=== PATIENT | female | born 1935 | race Caucasian/White ===

== ENCOUNTER → 2023-11-18 09:57 | Outpatient (REF) | payer OTHER, SELFPAY ==
[2023-11-18 11:14] LABS: % Basophils 0.8 % (0-2); % Immature Granulocytes 0.3 % (0-0.5); % Lymphocytes 20.6 % (20.5-51.1); % Monocytes 8.3 % (1.7-9.3); Absolute Basophils 0.1 10^3/uL (0-0.2); Absolute Eosinophils 0.1 10^3/uL (0-0.7); Absolute Lymphocytes 1.2 10^3/uL (1.2-3.4); Absolute Monocytes 0.5 10^3/uL (0.1-0.6); Absolute Neutrophils 4.2 10^3/uL (1.4-6.5); Hematocrit 37.4 % (37.0-47.0); Hemoglobin 12.1 g/dL (12.0-16.0); Mean Corp Hgb Conc. 32.4 g/dL (33.0-37.0); Mean Corpuscular Hgb 29.4 pg (27.0-31.0); Mean Platelet Volume 11.3 fL (7.4-10.4); Nucleated Red Blood Cells % 0 %; Platelet Count 200 10^3/uL (130-400); Red Blood Cell Count 4.11 10^6/uL (4.20-5.40); Red Cell Dist. Width 13.5 % (11.5-14.5)
[2023-11-18 11:49] LABS: Free T4 1.15 ng/dl (0.78-2.19); Vitamin D, 25-OH*** 25.6 ng/mL (30-80)
[2023-11-18 12:02] LABS: TSH 8.24 uIU/ml (0.47-4.68)
[2023-11-18 12:11] LABS: ALT (SGPT) 17 U/L (0-35); AST (SGOT) 32 U/L (14-36); Albumin 3.5 g/dl (3.5-5.0); Alkaline Phosphatase 52 U/L (38-126); Blood Urea Nitrogen 15 mg/dl (7-17); Calcium 9.1 mg/dl (8.4-10.2); Carbon Dioxide 24 mmol/L (22-30); Chloride 102 mmol/L (98-107); Glucose 83 mg/dl (70-99); HDL Cholesterol 96 mg/dl; Magnesium 2.1 mg/dl (1.6-2.3); Potassium 4.3 mmol/L (3.5-5.1); Sodium 133 mmol/L (135-145); Total Bilirubin 0.4 mg/dl (0.2-1.3); Total Protein 6.5 g/dl (6.3-8.2); Triglyceride 50 mg/dl (10-149); Very Low Density Lipoprotein 10 mg/dl (0-30); eGFR > 60.00
[2023-11-18 12:22] LABS: Vitamin B12 795 pg/ml (239-931)
[2023-11-18 12:23] LABS: Glycohemoglobin (HgbA1c) 5.8 % (4.0-5.6)
[2023-11-18 13:11] LABS: LDL Cholesterol, Calculated 89 mg/dl; Total Cholesterol 195 mg/dl (50-199)
[2023-11-20 16:37] LABS: Vitamin B6 Results 100.7 nmol/L (20.0-125.0)
== END ==
LOC: OLABN 09:57
PROVIDERS: ATTENDING PHYSICIAN Student in an Organized Health Care Education/Training Program
DX: E03.9 Hypothyroidism, unspecified (principal)
CPT/HCPCS: 36415; 80053; 80061; 82306; 82607; 83036; 83735; 84207; 84439; 84443; 85025

== ENCOUNTER → 2023-11-19 14:02 | Outpatient (REF) | payer OTHER, SELFPAY ==
[2023-11-19 15:30] LABS: Free T4 1.27 ng/dl (0.78-2.19)
[2023-11-19 15:44] LABS: TSH 8.43 uIU/ml (0.47-4.68)
[2023-11-21 22:05] LABS: Total T3 (Sendout) 60 ng/dL (80-200)
== END ==
LOC: OLABN 14:02
PROVIDERS: ATTENDING PHYSICIAN Student in an Organized Health Care Education/Training Program
DX: E03.9 Hypothyroidism, unspecified (principal)
CPT/HCPCS: 36415; 84439; 84443; 84480

== ENCOUNTER → 2023-12-22 10:56 | Outpatient (REF) | payer OTHER, SELFPAY ==
[2023-12-22 12:18] LABS: TSH < 0.02 uIU/ml (0.47-4.68)
== END ==
LOC: OLABN 10:56
PROVIDERS: ATTENDING PHYSICIAN Student in an Organized Health Care Education/Training Program
DX: E03.9 Hypothyroidism, unspecified (principal)
CPT/HCPCS: 36415; 84443

== ENCOUNTER → 2024-01-13 11:53 | Outpatient (REF) | payer OTHER, SELFPAY ==
[2024-01-13 12:27] LABS: Vitamin D, 25-OH*** 28.4 ng/mL (30-80)
== END ==
LOC: OLABN 11:53
PROVIDERS: ATTENDING PHYSICIAN Student in an Organized Health Care Education/Training Program
DX: E55.9 Vitamin D deficiency, unspecified (principal)
CPT/HCPCS: 36415; 82306

== ENCOUNTER → 2024-01-26 13:07 | Outpatient (REF) | payer OTHER, SELFPAY ==
[2024-01-26 16:45] LABS: Free T4 1.61 ng/dl (0.78-2.19)
[2024-01-26 16:59] LABS: TSH < 0.02 uIU/ml (0.47-4.68)
== END ==
LOC: OLABN 13:07
PROVIDERS: ATTENDING PHYSICIAN Student in an Organized Health Care Education/Training Program
DX: E03.9 Hypothyroidism, unspecified (principal)
CPT/HCPCS: 36415; 84439; 84443

== ENCOUNTER → 2024-02-17 12:07 | Outpatient (REF) | payer OTHER, SELFPAY ==
[2024-02-17 14:23] LABS: Vitamin D, 25-OH*** 33.6 ng/mL (30-80)
== END ==
LOC: OLABN 12:07
PROVIDERS: ATTENDING PHYSICIAN Student in an Organized Health Care Education/Training Program
DX: E55.9 Vitamin D deficiency, unspecified (principal)
CPT/HCPCS: 36415; 82306

== ENCOUNTER → 2024-02-23 11:24 | Outpatient (REF) | payer OTHER, SELFPAY ==
[2024-02-23 14:25] LABS: Free T4 1.29 ng/dl (0.78-2.19)
[2024-02-23 14:39] LABS: TSH < 0.02 uIU/ml (0.47-4.68)
== END ==
LOC: OLABN 11:24
PROVIDERS: ATTENDING PHYSICIAN Student in an Organized Health Care Education/Training Program
DX: E03.9 Hypothyroidism, unspecified (principal)
CPT/HCPCS: 36415; 84439; 84443

== ENCOUNTER → 2024-03-22 09:42 | Outpatient (REF) | payer MEDICARE, MEDICAID, SELFPAY | LOC: OLABN 09:42 | PROVIDERS: ATTENDING PHYSICIAN Student in an Organized Health Care Education/Training Program | DX: E03.9 Hypothyroidism, unspecified (principal) | CPT/HCPCS: 36415; 84443 ==

== ENCOUNTER → 2024-05-03 10:55 | Outpatient (REF) | payer MEDICARE, MEDICAID, SELFPAY ==
[2024-05-03 12:53] LABS: TSH 0.16 uIU/ml (0.47-4.68)
== END ==
LOC: OLABN 10:55
PROVIDERS: ATTENDING PHYSICIAN Student in an Organized Health Care Education/Training Program
DX: E03.9 Hypothyroidism, unspecified (principal)
CPT/HCPCS: 36415; 84443

== ENCOUNTER → 2024-05-31 11:08 | Outpatient (REF) | payer MEDICARE, MEDICAID, SELFPAY ==
[2024-05-31 13:10] LABS: TSH 1.58 uIU/ml (0.47-4.68)
== END ==
LOC: OLABN 11:08
PROVIDERS: ATTENDING PHYSICIAN Student in an Organized Health Care Education/Training Program
DX: E03.9 Hypothyroidism, unspecified (principal)
CPT/HCPCS: 36415; 84443

== ENCOUNTER → 2024-11-29 10:48 | Outpatient (REF) | payer MEDICARE, SELFPAY ==
[2024-11-29 13:28] LABS: HDL Cholesterol 74 mg/dl; LDL Cholesterol, Calculated 90 mg/dl; Total Cholesterol 185 mg/dl (50-199); Triglyceride 105 mg/dl (10-149); Very Low Density Lipoprotein 21 mg/dl (0-30)
== END ==
LOC: OLABN 10:48
PROVIDERS: ATTENDING PHYSICIAN Student in an Organized Health Care Education/Training Program
DX: E78.1 Pure hyperglyceridemia (principal)
CPT/HCPCS: 36415; 80061